=== PATIENT | male | born 1985 | race African-American/Black ===

== ENCOUNTER 2019-05-16 15:43 | Emergency (ER) | payer BC, OTHER ==
--- NOTE | 2019-05-16 15:57 | PDOC ---
History of Present Illness - General Chief Complaint: Abscess Boil Stated Complaint: BOIL Time Seen by Provider: 05/16/19 15:48 History Source: Patient Exam Limitations: No Limitations - History of Present Illness Initial Comments: 33 year old male with PMH Chron's disease presented to ED for right gluteal mass x 1 week. Pt reported his pain is worse with movement, better with rest. 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 Pt denied fever, chills, vomiting, diarrhea, abdominal pain, testicular pain, groin pain. Pt reported he noted some drainage from the mass. Pt reported he has never had a history of abscess or fistula. Surgical history: denied Allergies: NKDA PCP: Sandra GI: pt does not remember name ROS General: denied fever, chills, generalized weakness. HEENT: denied sore throat, rhinorrhea, ear pain. Cardiovascular: denied chest pain, palpitations, syncope, diaphoresis. Respiratory: denied shortness of breath, cough, sputum production, hemoptysis. Gastrointestinal: denied abdominal pain, nausea, vomiting, diarrhea, constipation, blood in stool. Genitourinary: denied dysuria, increased urinary frequency, hematuria, urinary incontinence, flank pain. Back: denied back pain. Musculoskeletal: denied joint pain, muscle pain, joint swelling. Neurological: denied headache, dizziness, numbness, tingling, weakness. Integumentary: admitted to [facility]. denied rash, laceration, abrasion. Hematologic/Lymphatic: denied bruising or bleeding. PE Constitutional: Well-nourished, Well-developed, appearing stated age. HEENT: head is normocephalic, atraumatic. EOMI. PERRLA. no posterior pharyngeal erythema.no tonsillar swelling or exudates bilaterally. uvula midline. no peritonsillar swelling, tenderness or abscess. no jaw tenderness or misalignment. Neck: supple. Full ROM. Cardiovascular: regular heart rhythm. no murmurs. no pericardial friction rub. Respiratory: clear to auscultation bilaterally. no crackles, rhonchi or wheezing. no stridor. Gastrointestinal: soft, nontender. normal bowel sounds. no rebound, guarding, masses. Extremities: peripheral pulses intact. no lower extremity edema. Neurological: CN 2-12 grossly intact. moves all four extremities. Psych: awake, alert, oriented x3. follows commands. answers questions appropriately. Skin: 4x4 mass with fluctance and induration, no overlying cellulitis, no crepitus, no drainage, no blood. Past History - Past Medical History Allergies/Adverse Reactions: Allergies Allergy/AdvReac Type Severity Reaction Status Date / Time No Known Allergies Allergy Verified 05/16/19 15:51 Home Medications: Ambulatory Orders Mesalamine [Pentasa] 500 mg PO TID 05/16/19 - Suicide/Smoking/Psychosocial Hx Smoking Status: No Smoking History: Never smoked Have you smoked in the past 12 months: No Number of Cigarettes Smoked Daily: 0 Hx Alcohol Use: No Substance Use Type: None ED Treatment Course - LABORATORY CBC & Chemistry Diagram: 05/16/19 16:50 05/16/19 16:50 Medical Decision Making - Medical Decision Making 33 year old male with above PMH presented to ED for gluteal mass x1 week. Examination significant for gluteal mass with fluctuance/induration, no overlying cellulitis. Initial Vital Signs Temp Pulse Resp BP Pulse Ox 98.4 F 62 15 121/68 99 05/16/19 15:47 05/16/19 15:47 05/16/19 15:47 05/16/19 15:47 05/16/19 15:47 Afebrile. No tachycardia. No tachypnea. No hypotension. No hypoxia on room air. Labs ordered: CBC, CMP, lactate, blood cultures, coags, T&S Imaging ordered: CT pelvis with IV contrast Medications ordered: tylenol IV, normal saline bolus 1000 cc once 05/16/19 17:18 CBC WBC 4.2 K/mm3 (4.0-10.8) 05/16/19 16:50 RBC 4.37 M/mm3 (4.00-5.60) 05/16/19 16:50 Hgb 11.6 GM/dl (11.7-16.9) L 05/16/19 16:50 Hct 35.8 % (35.4-49) 05/16/19 16:50 MCV 81.9 fl (80-96) 05/16/19 16:50 MCH 26.6 pg (25.7-33.7) 05/16/19 16:50 MCHC 32.4 g/dl (32.0-35.9) 05/16/19 16:50 RDW 14.2 % (11.9-15.9) 05/16/19 16:50 Plt Count 389 K/MM3 (134-434) 05/16/19 16:50 MPV 7.5 fl (7.5-11.1) 05/16/19 16:50 Absolute Neuts (auto) 2.5 K/mm3 05/16/19 16:50 Neutrophils % 58.8 % (42.8-82.8) 05/16/19 16:50 Lymphocytes % 24.8 % (8-40) 05/16/19 16:50 Monocytes % 11.3 % (3.8-10.2) H 05/16/19 16:50 Eosinophils % 4.1 % (0-4.5) 05/16/19 16:50 Basophils % 1.0 % (0-2.0) 05/16/19 16:50 No total WBC elevation, no left shift. Borderline anemia. Borderline low MCV. Mild monocytosis. 05/16/19 18:03 CMP Sodium 139 mmol/L (136-145) 05/16/19 16:50 Potassium 4.1 mmol/L (3.5-5.1) 05/16/19 16:50 Chloride 105 mmol/L (98-107) 05/16/19 16:50 Carbon Dioxide 28 mmol/L (21-32) 05/16/19 16:50 Anion Gap 6 MMOL/L (8-16) L 05/16/19 16:50 BUN 18.0 mg/dl (7-18) 05/16/19 16:50 Creatinine 1.0 mg/dl (0.55-1.3) 05/16/19 16:50 Est GFR (CKD-EPI)AfAm 114.91 05/16/19 16:50 Est GFR (CKD-EPI)NonAf 99.15 05/16/19 16:50 Random Glucose 83 mg/dl (74-106) 05/16/19 16:50 Calcium 9.2 mg/dl (8.5-10) 05/16/19 16:50 Total Bilirubin 0.3 mg/dl (0.2-1) 05/16/19 16:50 AST 24 U/L (15-37) 05/16/19 16:50 ALT 17 U/L (13-61) 05/16/19 16:50 Alkaline Phosphatase 68 U/L (45-117) 05/16/19 16:50 Total Protein 7.6 g/dl (6.4-8.2) 05/16/19 16:50 Albumin 3.9 g/dl (3.4-5.0) 05/16/19 16:50 No electrolyte abnormalities. No FELIX. No transaminitis. Pending lactate. Pending CT pelvis. *DC/Admit/Observation/Transfer Diagnosis at time of Disposition: Abscess, gluteal - Discharge Dispostion Disposition: HOME Condition at time of disposition: Good - Referrals Referrals: Isaias Flroes MD [Primary Care Provider] - - Patient Instructions Printed Discharge Instructions: DI for Incision and Drainage of a Skin Abscess Additional Instructions: Remove the packing in 24 hours and start hot soaks to the area as discussed by the doctor. Do the hot soaks 3 times a day for the next 2 days. Return to the emergency department immediately with ANY new, persistent or worsening symptoms. Continue any medications as previously prescribed by your physician. You should follow up with your primary doctor as soon as possible regarding today's emergency department visit. . Please make sure your doctor reviews the results of your emergency evaluation. Thank you for coming to the Emergency Department today for your care. It was a pleasure to see you today. Please note that your evaluation is INCOMPLETE until you follow-up with your doctor. - Post Discharge Activity Forms/Work/School Notes: Back to Work
[2019-05-16 16:01] VITALS: BP 121/68; PULSE 62; TEMP 98.4; BMI 25.0
[2019-05-16] MEDS ORDERED: SODIUM CHLORIDE 1,000 ML IV STA (16:09)
[2019-05-16] MEDS ORDERED: ACETAMINOPHEN 1000 MG/100 ML VIAL (NON FORMULARY) IVPB ONE (16:09)
[2019-05-16] MEDS ORDERED: ACETAMINOPHEN INJECTION 100 ML IVPB ONE (16:37)
--- NOTE | 2019-05-16 16:50 | PDOC ---
Attending Attestation - Resident Resident Name: Rita Barragan - ED Attending Attestation I have performed the following: I have examined & evaluated the patient, The case was reviewed & discussed with the resident, I agree w/resident's findings & plan, Exceptions are as noted - HPI HPI: 05/16/19 16:50 33 M with h/o Crohn's presents to ED with painful lump on R buttock. Pt states he first noticed it 1 week ago. He reports a small amount of purulent drainage. Denies any F/C. Pt has never had an abscess before. - Physicial Exam PE: 05/16/19 16:51 "GENERAL: Awake, alert, and fully oriented, in no acute distress. HEAD: No signs of trauma EYES: PERRLA, EOMI, sclera anicteric, conjunctiva clear ENT: Auricles normal inspection, hearing grossly normal, nares patent, oropharynx clear without exudates. Moist mucosa NECK: Nontender, no stepoffs, Normal ROM, supple, no lymphadenopathy, JVD, or masses LUNGS: Breath sounds equal, clear to auscultation bilaterally. No wheezes, and no crackles HEART: Regular rate and rhythm, normal S1 and S2, no murmurs, rubs or gallops ABDOMEN: Soft, nontender, normoactive bowel sounds. No guarding, no rebound. No masses EXTREMITIES: Normal range of motion, no edema. No clubbing or cyanosis. No cords, erythema, or tenderness NEUROLOGICAL: Cranial nerves II through XII intact. 5/5 strength and sensation in all extremities, Normal speech, normal gait, normal cerebellar function SKIN: Warm, Dry, normal turgor, no rashes or lesions noted. RECTAL: + 4cm area of fluctuance R buttock, approx 2 cm from anal sphincter, no surrounding erythema, no drainage - Medical Decision Making 05/16/19 16:54 33 M with crohn's presenting with possible abscess to R buttock. Will need to r/ o anal fistula. - Labs - CT pelvis w/ contrast
[2019-05-16 17:10] LABS: EOS % 4.1 % (0-4.5); HEMATOCRIT 35.8 % (35.4-49); HEMOGLOBIN 11.6 GM/dl (11.7-16.9); LYMPH % 24.8 % (8-40); MCH 26.6 pg (25.7-33.7); MCHC 32.4 g/dl (32.0-35.9); MEAN CELL VOLUME 81.9 fl (80-96); MEAN PLT VOLUME 7.5 fl (7.5-11.1); MONO % 11.3 % (3.8-10.2); NEUT % 58.8 % (42.8-82.8); PLATELET COUNT 389 K/MM3 (134-434); RBC 4.37 M/mm3 (4.00-5.60); RDW 14.2 % (11.9-15.9); WHITE BLOOD COUNT 4.2 K/mm3 (4.0-10.8)
[2019-05-16 17:24] LABS: INR 1.27 (0.82-1.09); PROTHROMBIN TIME (PATIENT) 14.2 SEC (10.2-13.0)
[2019-05-16 17:29] LABS: ALBUMIN 3.9 g/dl (3.4-5.0); BILIRUBIN,TOTAL 0.3 mg/dl (0.2-1); CALCIUM 9.2 mg/dl (8.5-10); POTASSIUM 4.1 mmol/L (3.5-5.1); TOT PROT 7.6 g/dl (6.4-8.2)
--- NOTE | 2019-05-16 20:21 | PDOC ---
*Physical Exam - Vital Signs Last Vital Signs Temp Pulse Resp BP Pulse Ox 98.4 F 62 15 121/68 99 05/16/19 15:47 05/16/19 15:47 05/16/19 15:47 05/16/19 15:47 05/16/19 15:47 ED Treatment Course - LABORATORY CBC & Chemistry Diagram: 05/16/19 16:50 05/16/19 16:50 - ADDITIONAL ORDERS Additional order review: Laboratory Results 05/16/19 05/16/19 05/16/19 16:50 16:50 16:50 PT with INR 14.2 H INR 1.27 H PTT (Actin FS) Sodium Potassium Chloride Carbon Dioxide Anion Gap BUN Creatinine Est GFR (CKD-EPI)AfAm Est GFR (CKD-EPI)NonAf Random Glucose Lactic Acid 0.8 Calcium Total Bilirubin AST ALT Alkaline Phosphatase Total Protein Albumin Blood Type B POSITIVE Antibody Screen Negative 05/16/19 05/16/19 16:50 16:50 PT with INR INR PTT (Actin FS) 30.8 Sodium 139 Potassium 4.1 Chloride 105 Carbon Dioxide 28 Anion Gap 6 L BUN 18.0 Creatinine 1.0 Est GFR (CKD-EPI)AfAm 114.91 Est GFR (CKD-EPI)NonAf 99.15 Random Glucose 83 Lactic Acid Calcium 9.2 Total Bilirubin 0.3 AST 24 ALT 17 Alkaline Phosphatase 68 Total Protein 7.6 Albumin 3.9 Blood Type Antibody Screen 05/16/19 16:50 RBC 4.37 MCV 81.9 MCHC 32.4 RDW 14.2 MPV 7.5 Neutrophils % 58.8 Lymphocytes % 24.8 Monocytes % 11.3 H Eosinophils % 4.1 Basophils % 1.0 - Medications Given in the ED: ED Medications Discontinued Medications Generic Name Dose Route Start Last Admin Trade Name Freq PRN Reason Stop Dose Admin Acetaminophen 1,000 mg 05/16/19 16:09 05/16/19 17:05 Ofirmev Injection - IVPB 05/16/19 16:10 1,000 mg ONCE ONE Administration Sodium Chloride 1,000 mls @ 1,000 mls/hr 05/16/19 16:09 05/16/19 17:00 Normal Saline - IV 05/16/19 17:08 1,000 mls/hr ASDIR STA Administration Progress Note - Progress Note Progress Note: Care of this patient was transferred to mi from Dr. larson at 1900 hrs. Patient is a 33-year-old male with a superficial abscess that required incision and drainage. It was unclear as to whether or not the abscess was superficial so a CAT scan was obtained which did show a superficial abscess of the buttocks area procedure note incision and drainage of abscess Abscess anesthetized with 1% lidocaine no epinephrine Abscess incised with #11 blade approximately 1 cm Moderate amount of purulent material and blood was removed Loculations were broken up 1/2 inch iodoform packing was placed in the abscess cavity Patient tolerated well Assessment and plan: This is a 33-year-old male who had a superficial abscess that was incised and drained with packing placed. Patient discharged with instructions to remove the packing in 24 hours and start hot soaks Wound cultures were sent *DC/Admit/Observation/Transfer Diagnosis at time of Disposition: Abscess, gluteal - Discharge Dispostion Disposition: HOME Condition at time of disposition: Good Decision to Admit order: No - Referrals Referrals: Isaias Flores MD [Primary Care Provider] - - Patient Instructions Printed Discharge Instructions: DI for Incision and Drainage of a Skin Abscess Additional Instructions: Remove the packing in 24 hours and start hot soaks to the area as discussed by the doctor. Due the hot soaks 3 times a day for the next 2 days. Return to the emergency department immediately with ANY new, persistent or worsening symptoms. Continue any medications as previously prescribed by your physician. You should follow up with your primary doctor as soon as possible regarding today's emergency department visit. . Please make sure your doctor reviews the results of your emergency evaluation. Thank you for coming to the Emergency Department today for your care. It was a pleasure to see you today. Please note that your evaluation is INCOMPLETE until you follow-up with your doctor. - Post Discharge Activity
== END 2019-05-16 20:26 | disposition home or self-care (01) ==
LOC: FER 15:43
PROC: 3E033NZ Introduction of Analgesics, Hypnotics, Sedatives into Peripheral Vein, Percutaneous Approach (ICD-10-PCS; principal; 2019-05-16)
PROC: 3E0337Z Introduction of Electrolytic and Water Balance Substance into Peripheral Vein, Percutaneous Approach (ICD-10-PCS; 2019-05-16)
PROC: 0H9AXZZ Drainage of Inguinal Skin, External Approach (ICD-10-PCS; 2019-05-16)
DX: L02.31 Cutaneous abscess of buttock (principal)
CPT/HCPCS: 36415; 72193-TC; 80053; 83605; 85025; 85610; 85730; 86850; 86900; 86901; 87040; 87070; 87205; 99283-25; J0131; J7030

== ENCOUNTER 2020-12-04 05:28 | Day surgery (SDC) | payer BC, OTHER ==
[2020-12-03 12:30] VITALS: BMI 24.4
[2020-12-04] MEDS ORDERED: MIDAZOLAM HCL 2 MG/2 ML SINGLE DOSE VIAL ONE (07:11)
[2020-12-04] MEDS ORDERED: fentaNYL CITRATE 250 MCG/5 ML VIAL ONE (07:11)
[2020-12-04] MEDS ORDERED: ESMOLOL HCL 100,000 MCG/10 ML VIAL ONE (07:14)
[2020-12-04] MEDS ORDERED: ceFAZolin SODIUM 1 GM VIAL ONE (07:15)
[2020-12-04] MEDS ORDERED: ceFAZolin SODIUM 1 GM VIAL IVPB ONE (08:25)
[2020-12-04] MEDS ORDERED: DEXAMETHASONE SOD PHOSPHATE 4 MG/1 ML VIAL ONE (08:40)
[2020-12-04] MEDS ORDERED: BUPIVACAINE HCL/PF 0.5% (5MG/ML) 10 ML VIAL IJ ONE (08:49)
[2020-12-04] MEDS ORDERED: KETOROLAC TROMETHAMINE 30 MG/1 ML VIAL ONE (09:52)
[2020-12-04] MEDS ORDERED: NEOSTIGMINE METHYLSULFATE 0.5 MG/ML - 10 ML MDV ONE (09:58)
[2020-12-04] MEDS ORDERED: GLYCOPYRROLATE 0.2 MG/1 ML VIAL ONE (09:59)
[2020-12-04] MEDS ORDERED: oxyCODONE HCL 5 MG TABLET PO PRN (10:48)
[2020-12-04] MEDS ORDERED: ONDANSETRON 4 MG/2 ML VIAL IVPUSH PRN (10:48)
[2020-12-04 13:36] VITALS: BP 111/58; PULSE 57; TEMP 98.9
== END 2020-12-04 13:35 | disposition home or self-care (01) ==
LOC: JASU-SURG 05:28
PROVIDERS: ATTEND Surgery
PROC: 0YU54JZ Supplement Right Inguinal Region with Synthetic Substitute, Percutaneous Endoscopic Approach (ICD-10-PCS; principal; 2020-12-04 08:00)
DX: K40.90 Unilateral inguinal hernia, without obstruction or gangrene, not specified as recurrent (principal)
CPT/HCPCS: 94760